=== PATIENT | female | born 1990 | race Two or more races ===

== ENCOUNTER 2021-06-22 08:39 | Observation (INO) | payer MEDICAID ==
[~2021-06-22] VITALS: Ht 165.1 cm; Wt 108.9 kg
== END 2021-06-22 11:15 | disposition home or self-care (01) ==
LOC: LDRP 08:39
PROVIDERS: ADMIT Obstetrics & Gynecology Obstetrics; ATTEND Obstetrics & Gynecology Obstetrics
DX: O24.419 Gestational diabetes mellitus in pregnancy, unspecified control (principal); Z3A.34 34 weeks gestation of pregnancy; Z91.040 Latex allergy status
CPT/HCPCS: 59025; 76818; 81002; 82948; G0378; 82962

== ENCOUNTER 2021-07-30 10:26 | Observation (INO) | payer MEDICAID ==
[2021-07-30] MEDS ORDERED: PREN-96 PO (12:40)
== END 2021-07-30 12:55 | disposition home or self-care (01) ==
LOC: LDRP 10:26
PROVIDERS: ADMIT Obstetrics & Gynecology; ATTEND Obstetrics & Gynecology
DX: O42.92 Full-term premature rupture of membranes, unspecified as to length of time between rupture and onset of labor (principal); Z3A.39 39 weeks gestation of pregnancy
CPT/HCPCS: 59025; 76818; 81002; 84112; 94760; G0378; Q0114

== ENCOUNTER 2021-08-01 17:30 | Inpatient (IN) | payer MEDICAID ==
[~2021-08-01] VITALS: Ht 165.1 cm; Wt 99.8 kg
[~2021-08-01 17:30] MED LIST: PREN-96 PO
[2021-08-01] MEDS ORDERED: LACTATED RINGER'S 1,000 ML IV SCH (17:45)
[2021-08-01] MEDS ORDERED: PROMETHAZINE HCL 25 MG/ML 1ML IV PRN (17:45)
[2021-08-01] MEDS ORDERED: ONDANSETRON ODT 4 MG TAB PO PRN (17:45)
[2021-08-01] MEDS ORDERED: LIDOCAINE 2%HCL (LOCAL ANESTH.) INJ 10ml MDV IJ PRN (17:45)
[2021-08-01] MEDS ORDERED: LIDOCAINE 2% (LOCAL ANESTH.) PF 5ml SDV ONE (17:49)
[2021-08-01] MEDS ORDERED: IBUPROFEN 800 MG TAB PO SCH (18:00)
[2021-08-01] MEDS ORDERED: LACT. RINGERS/OXYTOCIN 20UNITS 500 ML IV ONE ×2 (18:15→18:45)
[2021-08-01] MEDS ORDERED: LIDOCAINE HCL 2 %PF INJ 10ML AMP IJ ONE (18:30)
[2021-08-01 18:41] LABS: Basophils # (auto) 0.1 10 ^3/uL (0-0.2); Basophils % (auto) 0.8 % (0.0-2.0); Eosinophils # (auto) 0 10 ^3/uL (0-0.8); Eosinophils % (auto) 0.2 % (0.0-7.0); Hematocrit 35.4 % (36.0-46.0); Hemoglobin 11.8 g/dL (12.2-16.2); Lymphocytes # (auto) 1.2 10 ^3/uL (0.4-5.4); Mean Corpuscular Hemoglobin 29.6 pg (28.0-32.0); Mean Corpuscular Hgb Conc. 33.5 g/dL (32.0-36.0); Mean Corpuscular Volume 88.4 fL (80.0-100.0); Monocytes # (auto) 0.5 10 ^3/uL (0-1.3); Monocytes % (auto) 3.4 % (0.0-12.0); Neutrophils # (auto) 13.7 10 ^3/uL (1.6-8.6); Neutrophils % (auto) 87.6 % (37.0-80.0); Red Cell Distribution Width 13.2 % (11.8-14.3); White Blood Cell 15.6 10^3/uL (4.4-10.8)
[2021-08-01 18:48] LABS: INR 0.95 (0.9-1.15); Partial Thromboplastin Time 25.9 sec (23.6-33.0)
[2021-08-01 18:50] LABS: Albumin 2.6 g/dL (3.4-5.0); Calcium 8.7 mg/dL (8.5-10.1); Potassium 3.9 mmol/L (3.5-5.1)
[2021-08-01 18:53] LABS: BUN/Creatinine Ratio 13.8; Bilirubin, Total 0.2 mg/dL (0.2-1.0); Total Protein 7.3 g/dL (6.4-8.2)
[2021-08-01 23:00] VITALS: BP 119/53
[2021-08-01] MEDS: ACETAMINOPHEN 325 MG TAB PO PRN (23:22)
[2021-08-01] MEDS: DOCUSATE SOD 100 MG CAP PO SCH (23:22)
[2021-08-02 03:00] VITALS: BP 115/57
[2021-08-02] MEDS: IBUPROFEN 600 MG TAB PO PRN ×3 (05:51→21:03)
[2021-08-02 06:50] VITALS: BP 100/53
[2021-08-02] MEDS: WITCH HAZEL-GLYCERIN PAD TOP PRN (10:05)
[2021-08-02] MEDS: DERMOPLAST 60ML BOTTLE TOP PRN (10:05)
[2021-08-02] MEDS: PHISODERM TOP SOLN 240ML BTL TOP PRN (10:05)
[2021-08-02 11:04] VITALS: BP 119/66
[2021-08-02 12:16] LABS: Urine Bacteria NONE SEEN /hpf (None Seen); Urine Blood 3+ /uL (Negative); Urine Specific Gravity 1.008 (1.001-1.035); Urine WBC 11 /hpf (0 - 5)
[2021-08-02 12:22] LABS: Amphetamine Screen, Urine NEGATIVE (NEGATIVE); Barbiturate Scree,Urine NEGATIVE (NEGATIVE); Benzodiazephine Screen, Urine NEGATIVE (NEGATIVE); Cannabinoid Screen, Urine NEGATIVE (NEGATIVE); Cocaine Screen, Urine NEGATIVE (NEGATIVE); Opiate Scree,Urine NEGATIVE (NEGATIVE); Phencyclidine Screen, Urine NEGATIVE (NEGATIVE)
[2021-08-02] MEDS ORDERED: OXYTOCIN 10UNIT/ML 1ML VIAL IV ONE ×2 (13:17→16:49)
[2021-08-02 14:47] VITALS: BP 132/63
[2021-08-02 19:00] VITALS: BP 108/58
[2021-08-02] MEDS: DOCUSATE SOD 100 MG CAP PO SCH (22:31)
[2021-08-02 22:32] VITALS: BP 97/53
[2021-08-03] MEDS: WITCH HAZEL-GLYCERIN PAD TOP PRN (02:49)
[2021-08-03] MEDS: DERMOPLAST 60ML BOTTLE TOP PRN (02:49)
[2021-08-03] MEDS: PHISODERM TOP SOLN 240ML BTL TOP PRN (02:50)
[2021-08-03 02:56] VITALS: BP 97/57
[2021-08-03 06:46] VITALS: BP 98/52
[2021-08-03] MEDS: ACETAMINOPHEN 325 MG TAB PO PRN (07:05)
[2021-08-03 07:06] LABS: RPR Non Reactive (Non Reactive)
== END 2021-08-03 09:00 | disposition home or self-care (01) | DRG 560 ==
LOC: LDRP 17:30
PROVIDERS: ADMIT Obstetrics & Gynecology; ATTEND Obstetrics & Gynecology
PROC: 10E0XZZ Delivery of Products of Conception, External Approach (ICD-10-PCS; principal; 2021-08-01)
PROC: 0UQMXZZ Repair Vulva, External Approach (ICD-10-PCS; 2021-08-01)
DX: O24.429 Gestational diabetes mellitus in childbirth, unspecified control (principal); Z37.0 Single live birth; O71.82 Other specified trauma to perineum and vulva; Z3A.40 40 weeks gestation of pregnancy; Z20.822 Contact with and (suspected) exposure to COVID-19
CPT/HCPCS: 36415; 59409; 80053; 80307; 81001; 85025; 85610; 85730; 86592; 86850; 86900; 86901; 94760; 96365; G0378; J2001

== ENCOUNTER 2024-11-09 10:36 | Observation (INO) | payer MEDICAID ==
--- NOTE | 2024-11-10 00:01 | DVHDS2 ---
Physician Discharge Progress N Final Diagnosis: labor check 38wks Operations or Procedures: Operations or Procedures nst reactive reviwed,sono Condition on Discharge: Good Disposition: Home Discharge Instructions: Diet: Regular Activity: No Restrictions, As Tolerated Follow Up/Referral: as scheduled. Medications: na Follow Up Care: Specialist: 1w Discharge Statement: "Patient was advised to return to the ER or call 911 if any headaches, dizziness, shortness of breath, chest pain, abdominal pain, bleeding, fevers, or worsening of medical condition. Patient was counseled about treatment plan, medications, possible side effects, patientverbalized understanding. All questions were answered to the best of my ability. This discharge took greater then 30 minutes in planning, reviewing documentation, counseling the patient, and discussing with other team members." Visit Coding OBGYN Date of Service: Nov 09, 2024 Billing Provider: MANISHA HERMAN DO CRUSHED STONE GRADER Common Visit Codes: 51259-PDDRMTC INP/OBS CARE (HIGH) CRUSHED STONE GRADER Procedure Codes: 70189-61- NON-STRESS TEST MANISHA HERMAN DO Nov 10, 2024 00:00
== END 2024-11-09 12:02 | disposition home or self-care (01) ==
LOC: LDRP 10:36 → UNDOADMOB 10:36 → LDRP 10:48 → UNDODISOB 12:02
PROVIDERS: ADMIT Obstetrics & Gynecology; ATTEND Obstetrics & Gynecology
DX: O62.9 Abnormality of forces of labor, unspecified (principal); Z3A.38 38 weeks gestation of pregnancy; Z79.899 Other long term (current) drug therapy
CPT/HCPCS: 59025; 81002; 94760; G0378

== ENCOUNTER 2024-11-12 07:08 | Inpatient (IN) | payer MEDICAID ==
[2024-11-12] MEDS ORDERED: BUTORPHANOL TARTRATE 2 MG/1 ML VIAL IV PRN ×2 (07:30)
[2024-11-12] MEDS ORDERED: LACT. RINGERS/OXYTOCIN 20UNITS 1,000 ML IV SCH (07:45)
[2024-11-12] MEDS ORDERED: TERBUTALINE SULFATE 1 MG/ML 1ML VIAL SC PRN (07:45)
[2024-11-12 08:42] LABS: Hematocrit 35.5 % (36.0-46.0); Hemoglobin 12.0 g/dL (12.2-16.2); Mean Corpuscular Hemoglobin 30.0 pg (28.0-32.0); Mean Corpuscular Volume 88.6 fL (80.0-100.0); Nucleated Red Blood Cells % 0.1 %
[2024-11-12 08:54] LABS: Urine Protein, UAD Negative (Negative)
[2024-11-12 09:01] LABS: Alanine Aminotransferase 22 U/L (7-40); Albumin 3.7 g/dL (3.2-4.8); Alkaline Phosphatase 108 U/L (46-116); Anion Gap 9 (5-15); BUN/Creatinine Ratio 10.8 (10.0-20.0); Bilirubin, Total 0.3 mg/dL (0.2-1.0); Blood Urea Nitrogen 7 mg/dL (9-23); Calcium 8.7 mg/dL (8.7-10.4); Carbon Dioxide 23 mmol/L (20-31); Chloride 104 mmol/L (98-107); Glucose 71 mg/dL (74-106); Potassium 4.1 mmol/L (3.5-5.1); Sodium 136 mmol/L (136-145); Total Protein 6.8 g/dL (5.7-8.2)
[2024-11-12 09:11] LABS: INR 0.94 (0.9-1.15); Partial Thromboplastin Time 26.5 SEC (24.5-34.5); Prothrombin Time 10.0 sec (9.3-11.8)
--- NOTE | 2024-11-12 09:33 | DVH ---
CLINICAL HISTORY: induction of labor COMPARISON: BPP on DOS: 07/30/21, BIOPHYSICAL PROFILE on DOS: 07/30/21, BIOPHYSICAL PROFILE on DOS: 06/01 05/21 TECHNIQUE: biophysical profile was performed. Transabdominal sonographic images of the fetus we re obtained. FINDINGS: The fetus is in cephalic position. heart rate measures 141 BPM. Amniotic fluid index measures 8.0 cm. The placenta is anterior in position without visualized evidence of previa or abrupt ion. BPP profile is an overall score of 8/8, with 2/2 points for breathing, with at least one episode of breathing over a 30 second duration during a 30 minute observation, 2/2 points for m ovements, with 3 or more discrete body or limb movements, 2/2 points for tone, with one or more episodes of extremity extension with return to flexion, or opening and closing of hand, and 2/ 2 points for amniotic fluid, with at least 1 pocket of amniotic fluid that measures 2 cm in 2 perpend icular planes. IMPRESSION: BPP score of 8/8.
[2024-11-12 09:34] LABS: Amphetamine Screen, Urine Neg (NEGATIVE); Barbiturate Scree,Urine Neg (NEGATIVE); Benzodiazephine Screen, Urine Neg (NEGATIVE); Cocaine Screen, Urine Neg (NEGATIVE); Opiate Scree,Urine Neg (NEGATIVE); Phencyclidine Screen, Urine Neg (NEGATIVE)
[2024-11-12 09:35] LABS: Cannabinoid Screen, Urine Neg (NEGATIVE)
--- NOTE | 2024-11-12 09:57 | DVHHP ---
CHIEF COMPLAINT: Desires induction of labor due to history of rapid delivery. HISTORY OF PRESENT ILLNESS: The patient is a 34-year-old 3, para 2 with due date of 11/18, estimated gestational age of 39 weeks, admitted for induction of labor due to the patient's request. The patient stated last she almost delivered in the car. She wishes to have induction of labor. Risks, complications, indications, and alternatives were discussed with the patient. The patient wishes to proceed with induction of labor. PAST MEDICAL HISTORY: None. PAST SURGICAL HISTORY: None. SOCIAL HISTORY: None. FAMILY HISTORY: None. ALLERGIES: No known drug allergies. INSPECTOR ASSEMBLY HISTORY: 2 normal vaginal delivery. REVIEW OF SYSTEMS: Consistent with HPI. PHYSICAL EXAMINATION: VITAL SIGNS: Stable, afebrile. HEENT: Within normal limits. CARDIOVASCULAR: Regular rate and rhythm. LUNGS: Clear to auscultation. BREASTS: Symmetrical, no masses. ABDOMEN: Gravid. Positive heart. PELVIC: 1 cm, thick, posterior, -3. EXTREMITIES: No clubbing, cyanosis, or edema. IMPRESSION: * Intrauterine at 39 weeks, desires induction of labor. * History of rapid delivery. PLAN: Admit for induction of labor with Cytotec. Informed consent obtained. Risks, complications of induction including increased risk of bleeding, infection, increased risk of discussed and the patient's options reviewed. All questions answered. The patient fully understands. She wishes to proceed with planned procedure. DO SERA Bridges/CHARLIE TID: [id number] RECEIPT: [id number]
[2024-11-12] MEDS: DERMOPLAST 60ML BOTTLE TOP PRN (17:21)
[2024-11-12] MEDS: WITCH HAZEL-GLYCERIN PAD TOP PRN (17:21)
[2024-11-12] MEDS: PHISODERM TOP SOLN 240ML BTL TOP PRN (17:21)
[2024-11-12] MEDS: LACTATED RINGER'S 1,000 ML IV SCH (17:22)
[2024-11-12] MEDS: LIDOCAINE 2%HCL (LOCAL ANESTH.) INJ 20ML MDV ONE (19:27)
[2024-11-12] MEDS: LIDOCAINE 2%HCL (LOCAL ANESTH.) INJ 20ML MDV IJ PRN (19:40)
[2024-11-12] MEDS: METHYLERGONOVINE MALEATE 0.2 MG/ML AMP IM ONE (19:40)
--- NOTE | 2024-11-12 19:44 | LDN2 ---
Labor and Delivery Note Date 11/12/24 Age 34 3 Para 3 EDC 9-19 EGA 39WKS Diagnosis PERCIPITOUS DEL,39WKS IOL,MORBID OBESITY Vaginal Delivery: VTX Vacuum Assisted: No Placenta: Spontaneous Sex: Female Apgars 9-9 Nuchal Cord Transected: No Amniotic Fluid: Clear Anesthesia XYLOCAINE Episiotomy: No Extension: Yes (1ST DEG PERIURETHRAL LAC) Repaired with 2-0 CHROMIC EBL 300ML Labs Blood Bank 11/12/24 08:24: Blood Type A POSITIVE Complications NONE Conditions STABLE Comments/Significant Med Tootie SPEC EXAM NO CXAL LAC Visit Coding OBGYN Date of Service: Nov 12, 2024 Billing Provider: MANISHA HERMAN DO FABRICATION MIG WELDER Common Visit Codes: 35206-JYOLEAG OBS CARE (HIGH) F[employer]RICATION MIG WELDER Procedure Codes: 98895-FNV DELIVERY ONLY MANISHA HERMAN DO Nov 12, 2024 19:44
[2024-11-12] MEDS ORDERED: ONDANSETRON ODT 4 MG TAB PO PRN (20:15)
[2024-11-12] MEDS: DOCUSATE SOD 100 MG CAP PO SCH (22:00)
[2024-11-12] MEDS ORDERED: METHYLERGONOVINE MALEATE 0.2 MG/ML AMP IM ONE (22:15)
[2024-11-12 22:58] VITALS: BP 102/50; PULSE 73; RESP 18; TEMP 98.8
[2024-11-13] MEDS ORDERED: IBUPROFEN 600 MG TAB PO PRN (00:45)
[2024-11-13 03:00] VITALS: BP 114/58; PULSE 70; RESP 18; TEMP 98.6; O2SAT 99
[2024-11-13] MEDS: LACT. RINGERS/OXYTOCIN 20UNITS 500 ML IV ONE ×2 (03:43→03:44)
[2024-11-13] MEDS: ACETAMINOPHEN 325 MG TAB PO PRN (05:28)
--- NOTE | 2024-11-13 05:44 | DVHPN2 ---
Progress Note Date Seen: Nov 13, 2024 Subjective S: Lochia minimal Tolerating regular diet well. Ambulating and voiding well w/o feeling lightheaded or dizzy. Passing flatus but no BM yet. Breast feeding. Contraceptive plan: Desires and requests to be discharged home today Lochia minimal Tolerating regular diet well. Ambulating and voiding well w/o feeling lightheaded or dizzy. Passing flatus but no BM yet. Breast feeding. Contraceptive plan: Undecided Requests to be discharge today d/t infant being transferred out for required higher level of care vital signs Vital Sign Date Time Temp Pulse Resp B/P (MAP) Pulse Ox O2 Delivery O2 Flow Rate FiO2 11/13/24 03:00 98.6 70 18 114/58 (76) 99 98.6 11/12/24 22:00 Room Air Total Intake and Output 11/12/24 11/12/24 11/13/24 15:00 23:00 07:00 Output Total 1150 ml 1600 ml Balance -1150 ml -1600 ml medications Current Medications Medications Dose Ordered Sig/Rena Route Start Time Stop Time Status Last Admin Dose Admin Lactated Ringer's 1,000 ml @ 125 mls/hr Q8H IV 11/12/24 07:30 11/12/24 18:49 125 MLS/HR Witch Macey 1 pad PRN PRN TOP 11/12/24 07:30 11/12/24 17:21 1 PAD Sodium Lauryl Sulfate 240 ml PRN PRN TOP 11/12/24 07:30 11/12/24 17:21 240 ML Benzocaine 1 applic PRN PRN TOP 11/12/24 07:30 11/12/24 17:21 1 APPLIC Butorphanol Tartrate 1 mg Q4HPRN PRN IV 11/12/24 07:30 Butorphanol Tartrate 2 mg Q4HPRN PRN IV 11/12/24 07:30 Misoprostol 50 mcg Q4HPRN PRN PO 11/12/24 07:30 11/12/24 18:01 50 MCG Lidocaine HCl 20 ml ONCE PRN IJ 11/12/24 07:30 11/12/24 19:40 20 ML Oxytocin 1,000 ml @ 6 ml/hr Q24H IV 11/12/24 07:45 Terbutaline Sulfate 0.25 mg ONCE PRN SC 11/12/24 07:45 Acetaminophen 650 mg Q4HP PRN PO 11/12/24 20:15 11/13/24 05:28 650 MG Ondansetron HCl 4 mg Q4HPRN PRN PO 11/12/24 20:15 Docusate Sodium 200 mg HS PO 11/12/24 22:00 Ibuprofen 600 mg Q6HP PRN PO 11/13/24 00:45 laboratory and microbiology Laboratory Tests 11/12/24 08:24 Test 11/12/24 08:24 Range/Units Serum Glucose 71 L 74-106 mg/dL Objective O: A&O x3 NAD. Afebrile, VSS Chest: heart and lung sounds normal. Breasts: Nipples intact w/o cracks or soreness Abdomen: normal BS, soft, non-tender, no rebound or guarding, fundus firm @ U- 1, lochia minimal Perineum:- no edema, or erythema, laceration site with sutures intact, edges in good approximation. Extremities: no edema or tenderness Lochia - minimal Assessment/Plan A/P 34 yo now ppd#1 s/p , doing well. Blood Type: A Rh: Positive Breast feeding Rubella Immune Pain control with oral medications Bowel regimen: Increase fluid intake and fiber in diet, Laxative PRN PP BCM Plan: Undecided Discharge plan: May discharge home tomorrow if condition remains stable Plan discussed with: Patient Visit Coding OBGYN Date of Service: Nov 13, 2024 Billing Provider: DELIA CHANDLER CNM EMERGENCY PLANNER Common Visit Codes: [id number] INP/OBS CARE(HIGH) DELIA CHANDLER CNM Nov 13, 2024 05:44
[2024-11-13 07:00] VITALS: BP 116/65; PULSE 72; RESP 18; TEMP 98.6; O2SAT 96
--- NOTE | 2024-11-13 07:56 | DVHDS2 ---
Discharge Summary Date of Admission Nov 12, 2024 at 07:08 Date of Discharge: Nov 13, 2024 Admitting Diagnosis <> IUP at 39w 1d <> IOL at patient's request; h/o precipitous Labor & Delivery, almost delivered en-route to hospital with last <> GBS Neg Labs/Diagnostic Data: Laboratory Results Test 11/12/24 08:24 11/12/24 07:00 White Blood Count 9.7 10^3/uL (4.4-10.8) Red Blood Count 4.01 10^6/uL (4.0-5.20) Hemoglobin 12.0 g/dL (12.2-16.2) Hematocrit 35.5 % (36.0-46.0) Mean Corpuscular Volume 88.6 fL (80.0-100.0) Mean Corpuscular Hemoglobin 30.0 pg (28.0-32.0) Mean Corpuscular Hemoglobin Concent 33.8 g/dL (32.0-36.0) Red Cell Distribution Width 13.3 % (11.8-14.3) Platelet Count 264 10^3/uL (140-450) Mean Platelet Volume 10.0 fL (6.9-10.8) Neutrophils (%) (Auto) 75.0 % (37.0-80.0) Lymphocytes (%) (Auto) 16.9 % (10.0-50.0) Monocytes (%) (Auto) 7.0 % (0.0-12.0) Eosinophils (%) (Auto) 0.8 % (0.0-7.0) Basophils (%) (Auto) 0.3 % (0.0-2.0) Neutrophils # (Auto) 7.3 10 ^3/uL (1.6-8.6) Lymphocytes # (Auto) 1.6 10 ^3/uL (0.4-5.4) Monocytes # (Auto) 0.7 10 ^3/uL (0-1.3) Eosinophils # (Auto) 0.1 10 ^3/uL (0-0.8) Basophils # (Auto) 0 10 ^3/uL (0-0.2) Nucleated Red Blood Cells 0.1 % Prothrombin Time 10.0 sec (9.3-11.8) Prothrombin Time INR 0.94 (0.9-1.15) Activated Partial Thromboplast Time 26.5 SEC (24.5-34.5) Sodium Level 136 mmol/L (136-145) Potassium Level 4.1 mmol/L (3.5-5.1) Chloride Level 104 mmol/L (98-107) Carbon Dioxide Level 23 mmol/L (20-31) Anion Gap 9 (5-15) Blood Urea Nitrogen 7 mg/dL (9-23) Creatinine 0.65 mg/dL (0.550-1.02) Glomerular Filtration Rate Calc 118 mL/min (>90) BUN/Creatinine Ratio 10.8 (10.0-20.0) Serum Glucose 71 mg/dL (74-106) Calcium Level 8.7 mg/dL (8.7-10.4) Total Bilirubin 0.3 mg/dL (0.2-1.0) Aspartate Amino Transferase (AST) 17 U/L (13-40) Alanine Aminotransferase (ALT) 22 U/L (7-40) Alkaline Phosphatase 108 U/L (46-116) Total Protein 6.8 g/dL (5.7-8.2) Albumin 3.7 g/dL (3.2-4.8) Treponema pallidum Antibody Non-reactive (Negative) Hepatitis C Antibody Negative (Negative) Urine Color Yellow (Yellow) Urine Clarity Turbid (Clear) Urine pH 6.0 (5.0-9.0) Urine Specific Kelly 1.023 (1.001-1.035) Urine Protein Negative (Negative) Urine Ketones Negative (Negative) Urine Blood Negative /uL (Negative) Urine Nitrite Negative (Negative) Urine Bilirubin Negative (Negative) Urine Urobilinogen Normal mg/dL (Negative) Urine Leukocyte Esterase 2+ /uL (Negative) Urine RBC 2 /hpf (0 - 4) Urine Microscopic WBC 2 /HPF (0-5) Urine Squamous Epithelial Cells Few /hpf (<5) Urine Bacteria None seen /hpf (None Seen) Urine Mucus Few (None Seen) Urine Glucose Normal mg/dL (Normal) Urine Opiates Screen Neg (NEGATIVE) Urine Fentanyl Screen Neg (NEGATIVE) Urine Barbiturates Screen Neg (NEGATIVE) Urine Phencyclidine Screen Neg (NEGATIVE) Urine Amphetamines Screen Neg (NEGATIVE) Urine Benzodiazepines Screen Neg (NEGATIVE) Urine Cocaine Screen Neg (NEGATIVE) Urine Cannabinoids Screen Neg (NEGATIVE) Other Laboratory Tests 11/12/24 08:24 Brief Hx & Hospital Course: Ms Urias was admitted on 11/12/24 at 39w 1d EGA for IOL at her request d/t h/o precipitous labor and delivery. Induction process started with cervical ripening medication and patient then had an uneventful labor. She progressed to 2nd stage of labor and had a , had periurethral laceration. ( See Delivery Note for details) Normal course; meeting milestones w/o any problem or complications. Requests early discharge due to baby being transferred d/t need for higher level of care. Edwin Power DO notified and agrees to discharge patient Consults/Reason for consult Patient request early discharge as will be transferred to a higher level of care facility Operations or Procedures <> <> Repair of Laceration Condition at Discharge: Stable Final Diagnosis/Problems List Term - Delivered Discharge Disposition: Home Discharge Instruct/Medications Diet: Regular Diet comment: Routine regular diet rich in fiber, protein, iron and vitamin C with adequate fluid intake. Activity: No Restrictions, As Tolerated Activity comment: Unrestricted. Advance as tolerated. Balance activities with rest periods No heavy lifting, pushing or straining. Pelvic rest x 6weeks Follow Up/Referral: Follow up with OB Provider in 1-2 weeks Medications: Ibuprofen 600mg every 6 hours as needed for pain. Continue Vitamin with iron Scheduled Vit W/ Ferrous Fumara ( One Daily), 1 TAB PO DAILY, (Reported) Discharge Statement: self care instructions given. emergency signs and symptoms including but not limited to pre-eclampsia precautions and signs of infection, PPH & of PPD reviewed with patient. Follow up with OB Provider in 1 week "Patient was advised to return to the ER or call 911 if any headaches, dizziness, shortness of breath, chest pain, abdominal pain, bleeding, fevers, or worsening of medical condition. Patient was counseled about treatment plan, medications, possible side effects, patientverbalized understanding. All questions were answered to the best of my ability. This discharge took greater then 30 minutes in planning, reviewing documentation, counseling the patient, and discussing with other team members." ASSESSMENT ASSESSMENT Hospital Course Ms Urias was admitted on 11/12/24 at 39w 1d EGA for IOL at her request d/t h/o precipitous labor and delivery. Induction process started with cervical ripening medication and patient then had an uneventful labor. She progressed to 2nd stage of labor and had a , had periurethral laceration. ( See Delivery Note for details) Normal course; meeting milestones w/o any problem or complications. Requests early discharge due to baby being transferred d/t need for higher level of care Assessment Term Delivered Day #1 Visit Coding OBGYN Date of Service: Nov 13, 2024 Billing Provider: DELIA CHANDLER CNM ASSISTED LIVING MANAGER Common Visit Codes: 06432-AIL/OBS DISCH DAY <30MIN DELIA CHANDLER CNM Nov 13, 2024 07:56
[2024-11-13 11:00] VITALS: BP 112/59; PULSE 79; RESP 18; TEMP 98.4; O2SAT 97
== END 2024-11-13 14:15 | disposition home or self-care (01) | DRG 560 ==
LOC: LDRP 07:08
PROVIDERS: ADMIT Obstetrics & Gynecology; ATTEND Obstetrics & Gynecology
PROC: 10E0XZZ Delivery of Products of Conception, External Approach (ICD-10-PCS; principal; 2024-11-12)
PROC: 0HQ9XZZ Repair Perineum Skin, External Approach (ICD-10-PCS; 2024-11-12)
PROC: 3E0DXGC Introduction of Other Therapeutic Substance into Mouth and Pharynx, External Approach (ICD-10-PCS; 2024-11-12)
DX: O62.3 Precipitate labor (principal); Z37.0 Single live birth; E66.01 Morbid (severe) obesity due to excess calories; O99.214 Obesity complicating childbirth; O70.0 First degree perineal laceration during delivery; Z3A.39 39 weeks gestation of pregnancy
CPT/HCPCS: 36415; 59409; 76819; 80053; 80307; 81001; 81002; 85025; 85610; 85730; 86780; 86803; 86850; 86900; 86901; 94760; 94762; 96360; 96361; 96365; 96372; G0378; J2590